=== PATIENT | male | born 1990 | race American Indian/Alaskan Native ===

== ENCOUNTER 2018-06-12 07:58 | Emergency (ER) | payer MEDICAID, OTHER ==
[2018-06-12 08:06] VITALS: BP 145/80
[2018-06-12] MEDS ORDERED: TORADOL IM ONE (08:26)
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
== END 2018-06-12 08:47 | disposition home or self-care (01) ==
LOC: ED 07:58
DX: S80.12XA Contusion of left lower leg, initial encounter (principal); W50.0XXA Accidental hit or strike by another person, initial encounter; Y93.89 Activity, other specified; Y92.019 Unspecified place in single-family (private) house as the place of occurrence of the external cause; Y99.8 Other external cause status
CPT/HCPCS: 96372; 99282; J1885